=== PATIENT | male | born 1985 | race Caucasian/White ===

== ENCOUNTER 2019-02-18 06:32 | Day surgery (SDC) | payer BC, OTHER ==
[~2019-02-18 06:32] MED LIST: Sodium Chloride 0.9% 10 ML Syringe FLUSH PRN
[2019-02-18] MEDS ORDERED: fentaNYL 100 MCG/2 ML SDV IV ONE (06:33)
[2019-02-18] MEDS ORDERED: Ondansetron 4 MG/2 ML SDV IVPUSH ONE (06:33)
[2019-02-18] MEDS ORDERED: Midazolam 1 MG/ML 2 ML SDV IV ONE (06:33)
[2019-02-18] MEDS ORDERED: Acetaminophen 1,000 MG/100 ML Infusion Bottle IV ONE (06:33)
[2019-02-18] MEDS ORDERED: Dexamethasone 4 MG/ML 5 ML MDV IVPUSH ONE (06:33)
[2019-02-18] MEDS ORDERED: Succinylcholine 200 MG/10 ML MDV IV ONE (06:33)
[2019-02-18] MEDS ORDERED: Propofol 200 MG/20 ML SDV IV ONE (06:33)
[2019-02-18] MEDS ORDERED: Lidocaine 2% 100 MG/5 ML Syringe IVPUSH ONE (06:33)
[2019-02-18] MEDS: Lactated Ringers 1,000 ML IV SCH (07:18)
[2019-02-18] MEDS: Acetaminophen 1,000 MG in Premix Bag 1 BAG IV ONE (07:19)
--- NOTE | 2019-02-18 07:43 | PCM.HPR ---
H & P Addendum review - H & P Addendum Review Date of Original H & P: 01/22/19 Date Reviewed: 02/18/19 Time Reviewed: 07:30 Patient was Examined: No Changes
--- NOTE | 2019-02-18 08:11 | PCM.OPNOTE ---
- General Post-Op/Procedure Note Date of Surgery/Procedure: 02/18/19 Operative Procedure(s): Tonsillectomy Pre Op Diagnosis: Tonsillat Hypertrophy Post-Op Diagnosis: Same Anesthesia Technique: General ET Tube Primary Surgeon: Idris Nation Pathology: Tonsils EBL in mLs: 1 Complications: None Condition: Good
[2019-02-18] MEDS ORDERED: Morphine 2 MG/ML Syringe IVPUSH PRN (08:13)
[2019-02-18] MEDS ORDERED: Acetaminophen/HYDROcodone 325-5 MG Tab PO PRN (08:14)
[2019-02-18] MEDS: HYDROmorphone 2 MG/ML SDV IVPUSH ONE (08:46)
[2019-02-18] MEDS: Acetaminophen/Codeine 120-12 MG/5 ML Soln 5 ML UD Cup PO PRN (09:26)
[2019-02-18 09:54] VITALS: BP 136/88
--- NOTE | 2019-02-19 08:56 | OR ---
DATE OF OPERATION: 02/18/2019 SURGEON: Idris Nation MD PREOPERATIVE DIAGNOSIS: Tonsillar hypertrophy with obstructive symptoms. POSTOPERATIVE DIAGNOSIS: Tonsillar hypertrophy with obstructive symptoms. PROCEDURE: Tonsillectomy. ANESTHESIA: General. PROCEDURE IN DETAIL: The patient was brought to the operating room, where general endotracheal anesthesia was administered. The oral gag retractor was inserted. Both tonsils are moderately enlarged but no active infection. Right tonsil was grasped and retracted towards the midline. Electrocautery was used to dissect along its muscular plane, removing it without difficulty. No bleeding occurred. The left tonsil was removed in a similar fashion without difficulty. There was minimal oozing near the base of the tongue that was controlled with cautery. The retractor was partially released and surgical sites observed for couple of minutes and remained hemostatic. Retractor was then removed. The patient was extubated and returned to recovery in stable condition. ESTIMATED BLOOD LOSS: Less than 1 mL. /[id number] SHRADDHA/BHARAT CC: CHERYL CORREA CNP
== END 2019-02-18 09:55 | disposition home or self-care (01) ==
LOC: FB.SDS 06:32
PROVIDERS: ATTEND Surgery
DX: J35.01 Chronic tonsillitis (principal); G47.33 Obstructive sleep apnea (adult) (pediatric); G25.81 Restless legs syndrome; Z79.899 Other long term (current) drug therapy
CPT/HCPCS: 88304; J0131; J0330; J1100; J1170; J2001; J2250; J2405; J2704; J3010; J7120